=== PATIENT | female | born 1980 | race Caucasian/White ===

== ENCOUNTER 2021-06-21 16:15 | Emergency (ER) | payer MEDICAID ==
--- NOTE | 2021-06-21 16:44 | EDM.PDOC ---
ED HPI GENERAL MEDICAL PROBLEM - General Stated Complaint: cough and cold Time Seen by Provider: 06/21/21 16:20 Source of Information: Reports: Patient History Limitations: Reports: No Limitations - History of Present Illness INITIAL COMMENTS - FREE TEXT/NARRATIVE: Patient presented to the ED because of cough and cold, nasal congestion and sore throat for 1 week. There is no associated fever or chills. She is covid vaccinated and denies any exposure. - Related Data Allergies Allergy/AdvReac Type Severity Reaction Status Date / Time No Known Allergies Allergy Verified 01/01/14 18:45 Home Meds: Home Meds Venlafaxine [Effexor] 0 mg PO DAILY 01/01/14 [History] Azithromycin [Zithromax] 500 mg PO DAILY #5 tab 06/21/21 [Rx] Codeine/guaiFENesin [guaiFENesin-Codeine Syrup] 10 ml PO Q4H PRN #120 ml 06/21/21 [Rx] guaiFENesin [Mucinex] 600 mg PO BID #10 tab.er.12h 06/21/21 [Rx] predniSONE [Prednisone] 20 mg PO DAILY #5 tablet 06/21/21 [Rx] ED ROS GENERAL - Review of Systems Review Of Systems: See Below Constitutional: Reports: No Symptoms HEENT: Reports: No Symptoms, Rhinitis, Throat Pain Respiratory: Reports: Wheezing Cardiovascular: Reports: No Symptoms Endocrine: Reports: No Symptoms GI/Abdominal: Reports: No Symptoms : Reports: No Symptoms Musculoskeletal: Reports: No Symptoms Skin: Reports: No Symptoms Neurological: Reports: No Symptoms Psychiatric: Reports: No Symptoms ED EXAM, GENERAL - Physical Exam Exam: See Below Exam Limited By: No Limitations General Appearance: Alert, No Apparent Distress Eye Exam: Bilateral Eye: PERRL Ears: Normal External Exam, Normal Canal, Normal TMs Nose: Normal Inspection, Normal Mucosa, No Blood Throat/Mouth: Normal Inspection, Normal Lips, Normal Teeth, Normal Oropharynx, Normal Voice Head: Atraumatic, Normocephalic Neck: Normal Inspection, Supple Respiratory/Chest: No Respiratory Distress, Lungs Clear, No Accessory Muscle Use, Chest Non-Tender, Wheezing Cardiovascular: Normal Peripheral Pulses, Regular Rate, Rhythm, No Edema, No Gallop, No JVD, No Murmur GI/Abdominal: Normal Bowel Sounds, Soft, Non-Tender, No Organomegaly, No Distention, No Abnormal Bruit, No Mass Back Exam: Normal Inspection, Full Range of Motion Extremities: Normal Inspection, Normal Range of Motion, Non-Tender, No Pedal Edema, Normal Capillary Refill Neurological: Alert, Oriented, CN II-XII Intact, Normal Cognition, Normal Refle xes, No Motor/Sensory Deficits Psychiatric: Normal Affect, Normal Mood Departure - Departure Time of Disposition: 16:45 Disposition: Home, Self-Care 01 Condition: Good Clinical Impression: Acute bronchitis, Nicotine abuse, Sinus congestion - Discharge Information Prescriptions: guaiFENesin [Mucinex] 600 mg PO BID #10 tab.er.12h predniSONE [Prednisone] 20 mg PO DAILY #5 tablet Codeine/guaiFENesin [guaiFENesin-Codeine Syrup] 10 ml PO Q4H PRN #120 ml PRN Reason: Cough Azithromycin [Zithromax] 500 mg PO DAILY #5 tab Instructions: Acute Bronchitis, Adult, [id number] Referrals: Cassie Castro [employer]PERATOR [Primary Care Provider] - Additional Instructions: Please read discharge instructions on acute bronchitis and sinus congestion Drink 2 liters of water daily Zithromax 500 mg daily for 5 days Prednisone 20 mg once daily for 6 days Mucinex 600 mg twice daily for 5 days Robitussin AC, 10 ml every 4-6 hours as needed for cough Follow up as needed
== END 2021-06-21 17:00 | disposition home or self-care (01) ==
LOC: FB.ED 16:15
DX: J20.9 Acute bronchitis, unspecified (principal); Z72.0 Tobacco use
CPT/HCPCS: 99283

== ENCOUNTER 2021-07-22 17:25 | Emergency (ER) | payer MEDICAID ==
--- NOTE | 2021-07-22 18:11 | EDM.PDOC ---
ED HPI GENERAL MEDICAL PROBLEM - General Stated Complaint: BACK PAIN Time Seen by Provider: 07/22/21 17:50 Source of Information: Reports: Patient - History of Present Illness INITIAL COMMENTS - FREE TEXT/NARRATIVE: 41-year-old lady came to the emergency department due to back pain and abdominal pain. She states that she had a progesterone implant removed from her arm in April and still has not had a menstrual cycle. She has a history significant for hernia repair as well as other abdominal surgery as well as endometriosis. She is aware that she has a history of adhesions. She now has significant abdominal pain. She has had abdominal pain for 2 or more weeks now but the pain has been increasing over that period of time and has got to the point where she cannot take it anymore. Is concerned she may have an ectopic . Notes that she also has a history of degenerative disc disease and back pain. These chronic and acute complaints of combined to cause her great concern. She denies fever, chills, upper respiratory symptoms, chest pain, shortness of breath, change in bowel or bladder habits. 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: Musculoskeletal History: Reports: Other (See Below) Other Musculoskeletal History: scoliosis Psychiatric History: Reports: Anxiety Endocrine/Metabolic History: Reports: Obesity/BMI 30+ Oncologic (Cancer) History: Reports: None - Infectious Disease History Infectious Disease History: Reports: None Social & Family History - Family History Family Medical History: No Pertinent Family History - Caffeine Use Caffeine Use: Reports: Coffee ED ROS GENERAL - Review of Systems Review Of Systems: See Below Constitutional: Reports: No Symptoms HEENT: Reports: No Symptoms Respiratory: Reports: No Symptoms Cardiovascular: Reports: No Symptoms Endocrine: Reports: No Symptoms GI/Abdominal: Reports: Abdominal Pain : Reports: No Symptoms Musculoskeletal: Reports: Back Pain Skin: Reports: No Symptoms Neurological: Reports: No Symptoms Psychiatric: Reports: No Symptoms Hematologic/Lymphatic: Reports: No Symptoms Immunologic: Reports: No Symptoms ED EXAM, GI/ABD - Physical Exam Exam: See Below Exam Limited By: No Limitations General Appearance: Alert, Anxious, Mild Distress Eyes: Bilateral: EOMI Head: Atraumatic, Normocephalic Neck: Normal Inspection Respiratory/Chest: No Respiratory Distress, Lungs Clear Cardiovascular: Regular Rate, Rhythm, No Murmur GI/Abdominal Exam: Normal Bowel Sounds, Tender Back Exam: Normal Inspection Extremities: Normal Inspection Neurological: Alert, Oriented, CN II-XII Intact, Normal Cognition, Normal Gait Psychiatric: Anxious Skin Exam: Warm, Dry Course - Vital Signs Text/Narrative:: You have lab work shows that her urine test is negative. CBC and CMP are all within normal limits. Patient likely has pathology stemming from multiple abdominal surgeries such as adhesions causing cramps, bloating, intermittent constipation. She also has history of endometriosis and now withdrawal from progesterone only therapy could be causing other symptoms. When I explained lab results to the patient she stated that she also had several, as many as 15, breast cysts last year and continues to have some discharge from her breasts. I strongly encouraged her to follow-up with her primary care physician. - Orders/Labs/Meds Labs: Laboratory Tests 07/22/21 07/22/21 07/22/21 Range/Units 18:20 18:22 18:22 WBC 5.2 (3.0-10.3) x10-3/uL RBC 4.73 (3.60-5.20) x10(6)uL Hgb 13.7 (11.4-15.5) g/dL Hct 41.2 (34.2-48.2) % MCV 87.1 (76.7-100.5) fL MCH 29.0 (23.9-33.9) pg MCHC 33.3 (31.9-34.8) g/dL RDW 13.4 (12.3-16.5) % Plt Count 265 (151-488) x10(3)uL MPV 6.8 L (7.1-12.4) fL Neut % (Auto) 62.5 (30.8-76.2) % Lymph % (Auto) 28.8 (18.4-52.1) % Major % (Auto) 7.7 (4.4-15.7) % Eos % (Auto) 0.2 L (0.6-8.1) % Baso % (Auto) 0.8 (0.2-1.5) % Neut # (Auto) 3.3 (1.5-6.3) x10-3/uL Lymph # (Auto) 1.5 (1.0-4.4) x10-3/uL Major # (Auto) 0.4 (0.3-1.0) x10-3/uL Eos # (Auto) 0.0 (0.0-0.8) x10-3/uL Baso # (Auto) 0.0 (0.0-0.1) x10-3/uL Sodium 138 (135-145) mmol/L Potassium 4.1 (3.5-5.3) mmol/L Chloride 105 (100-110) mmol/L Carbon Dioxide 24 (21-32) mmol/L BUN 11 (7-18) mg/dL Creatinine 0.9 (0.55-1.02) mg/dL Est Cr Clr Drug Dosing TNP Estimated GFR (MDRD) > 60 (>60) BUN/Creatinine Ratio 12.2 (9-20) Glucose 94 (80-116) mg/dL Calcium 8.3 L (8.6-10.2) mg/dL Total Bilirubin 0.4 (0.1-1.3) mg/dL AST 8 (5-25) IU/L ALT 13 (12-36) U/L Alkaline Phosphatase 73 (56-112) IU/L Total Protein 7.2 (6.0-8.0) g/dL Albumin 4.0 (3.5-5.2) g/dL Globulin 3.2 g/dL Albumin/Globulin Ratio 1.3 Urine HCG, Qual Negative (NEGATIVE) Departure - Departure Time of Disposition: 19:08 Disposition: Home, Self-Care 01 Condition: Good Clinical Impression: Abdominal adhesions, Chronic low back pain - Discharge Information *PRESCRIPTION DRUG MONITORING PROGRAM REVIEWED*: Not Applicable *COPY OF PRESCRIPTION DRUG MONITORING REPORT IN PATIENT JAE: Not Applicable Instructions: Chronic Back Pain, [id number] Referrals: Felix Ragsdale MD [Primary Care Provider] - Additional Instructions: Discussed lab results with the patient. As stated in hospital course patient informed me that she was having some discharge from her breast after having found 15 or more cysts last year. She thinks this may be secondary to her progesterone only implant therapy. Patient likely has abdominal pain and discomfort along with bloating, constipation secondary to history of endometriosis, several surgeries, and likely adhesions. I strongly advised the patient to follow-up with her primary care physician to receive evaluation and treatment from his chronic problems.
== END 2021-07-22 19:20 | disposition home or self-care (01) ==
LOC: FB.ED 17:25
DX: M54.50 Low back pain, unspecified (principal); G89.29 Other chronic pain; K66.0 Peritoneal adhesions (postprocedural) (postinfection); M41.9 Scoliosis, unspecified; E66.9 Obesity, unspecified; Z88.8 Allergy status to other drugs, medicaments and biological substances; Z88.2 Allergy status to sulfonamides; Z79.899 Other long term (current) drug therapy
CPT/HCPCS: 36415; 80053; 81025; 85025; 99284

== ENCOUNTER 2021-12-30 04:42 | Emergency (ER) | payer MEDICAID | END 2021-12-30 06:23 | disposition left against medical advice (07) | LOC: FB.ED 04:42 | DX: E04.1 Nontoxic single thyroid nodule (principal); R53.83 Other fatigue; E66.9 Obesity, unspecified; Z68.33 Body mass index [BMI] 33.0-33.9, adult; Z79.899 Other long term (current) drug therapy; Z88.2 Allergy status to sulfonamides; Z88.8 Allergy status to other drugs, medicaments and biological substances | CPT/HCPCS: 36415; 80053; 85025; 99283; 99284 ==

== ENCOUNTER 2023-04-20 14:51 | Emergency (ER) | payer MEDICAID ==
[2023-04-20] MEDS ORDERED: diphenhydrAMINE 50 MG Cap PO ONE ×2 (15:04→15:21)
[2023-04-20] MEDS ORDERED: Famotidine 20 MG Tab PO ONE (15:21)
[2023-04-20] MEDS ORDERED: Dexamethasone 4 MG/ML 5 ML MDV IM ONE (15:21)
== END 2023-04-20 16:28 | disposition home or self-care (01) ==
LOC: FB.ED 14:51
DX: T63.441A Toxic effect of venom of bees, accidental (unintentional), initial encounter (principal); H00.11 Chalazion right upper eyelid; E66.9 Obesity, unspecified; F17.210 Nicotine dependence, cigarettes, uncomplicated; Z68.30 Body mass index [BMI] 30.0-30.9, adult; Z88.8 Allergy status to other drugs, medicaments and biological substances; Z88.2 Allergy status to sulfonamides
CPT/HCPCS: 96372; 99283; A9270; J1100